=== PATIENT | male | born 1985 | race Caucasian/White ===

== ENCOUNTER 2018-07-22 19:20 | Emergency (ER) | payer BC, SELFPAY ==
[2018-07-22 19:21] VITALS: BP 144/80; PULSE 112; RESP 20; TEMP 37.1; O2SAT 95; BMI 39.8
--- NOTE | 2018-07-22 19:49 | CT_ITS ---
STUDY: CT LEFT FEMUR WITH AND WITHOUT CONTRAST REASON FOR EXAM: Male, 32 years old. Trauma to left posterior thigh RADIATION DOSAGE (If Supplied By Facility): CTDIvol = ( 48.46 ) mGy, DLP = ( 1380.25 ) mGycm TECHNIQUE: Transaxial CT imaging of the femur was performed pre and post contrast administration. The examination was performed with intravenous administration of 100ML ml of Isovue 370 contrast material. Sagittal and coronal images were reconstructed. Individualized dose optimization techniques were used for this CT. COMPARISON: None. FINDINGS: Normal visualized femur. There is air seen within the subcutaneous fat of the left posterior medial thigh and within the medial muscular compartment.. There is no hematoma identified or contrast extravasation to suggest active bleeding at this time There is no enhancing abnormality. CT/CTA LWR EXTR W/O & W/DYE IMPRESSION: Subcutaneous and medial compartmental air status post traumatic puncture injury without evidence for appreciable hematoma or acute hemorrhage at this time No evidence for fracture Electronically Signed: Peter Russell MD at 20:30 EDT , Service support ,
[2018-07-22] MEDS: Ondansetron 4 MG/2 ML Vial IV (19:55)
[2018-07-22] MEDS: Morphine 4 MG/ML Syringe IV (19:56)
[2018-07-22] MEDS: Diphth,Pertuss(Acell),Tet Vac 0.5 ML Vial IM (20:15)
[2018-07-22] MEDS: 0.9% Normal Saline 1,000 ML 150 ML IV (20:15)
[2018-07-22 20:39] LABS: Absolute Lymphocyte Count 2.27 X10^3/ul (0.83-4.51); Absolute Neutrophil Count 8.7 X10^3/uL (2.0-7.7); Basophil# 0.05 X10^3/uL; Basophil% 0.4 % (0-1); Eosinophil# 0.33 X10^3/uL; Eosinophils% 2.6 % (0-5); Hematocrit 46.2 % (40-54); Hemoglobin 15.6 g/dl (13.0-16.5); Lymphocyte # 2.27 X10^3/ul (4.0); Lymphocyte % 18.1 % (19-41); Mean Corp Hgb Conc 33.8 g/gl (32-36); Mean Corpuscular Hgb 27.6 pg (27.0-32.0); Mean Corpuscular Volume 81.6 fL (80-94); Mean Platelet Vol. 10.3 fl (6.2-12.0); Monocyte# 1.12 X10^3/uL; Monocyte% 8.9 % (0-10); Neutrophil # 8.72 X10^3/uL (2.7-7.7); Neutrophil % 69.6 % (47-70); POSITIVE COUNT NO; POSITIVE DIFFERENTIAL NO; POSITIVE MORPHOLOGY NO; Platelet Count 212 K/mm3 (150-450); RBC Distribution Width CV 13.8 % (11.6-14.6); Red Blood Count 5.66 M/mm3 (4.6-6.2); White Blood Count 12.5 K/mm3 (4.4-11.0)
[2018-07-22 20:47] LABS: Anion Gap 9 (5-15); BUN 20 mg/dL (7-18); BUN/Creat Ratio 18.2 RATIO (10-20); Calcium,Total 8.5 mg/dL (8.5-10.1); Chloride 109 mmol/L (98-107); EST Glomerular Filtration Rate 83 mL/min (>60); Est Glom Filt Rate - Afr Amer 101 mL/min (>60); Estimated Creatinine Clearance 114.17 ml/min; Glucose 90 mg/dL (74-106); Potassium 3.7 mmol/L (3.5-5.1); Sodium Level 141 mmol/L (136-145)
--- NOTE | 2018-07-22 22:06 | ED.VISSUMM ---
- ER Visit Summary Date of Service: 07/22/18 Chief Complaint: Puncture wound left thigh History of Present Illness: The patient is a 32 M who states he was standing on a fence trying to drive a 4 x 4 into the ground. He slipped and fell, impaling his left thigh on a slight of a picket fencing. Patient did ambulate into the emergency room. He is unsure of his last tetanus update. He denies any other injury from the fall. Physical Examination: Vital signs remarkable for mild tachycardia. Patient is lying supine in the bed. Left lower extremity examination is significant for a broken wooden fence pick it impaled into the posterior, medial left thigh. He has minimal surrounding bleeding. He has strong distal pulses and good range of motion of his leg. Test Results: CT of the left lower extremity reveals subcutaneous and medial compartmental air status post traumatic puncture without hematoma or acute hemorrhage. CBC was a white count 12.5 with normal differential. Hemoglobin is normal. Chemistry studies unremarkable. Emergency Department Course and Treatment: Tetanus update is provided. Patient is given morphine and Zofran. 10 cc 1% lidocaine is infused locally around the impaled wound. The wooden fence packet was removed from the wound. There is no significant bleeding once foreign body was removed. Wound was explored with no evidence of foreign body. Wound was thoroughly irrigated. Skin was closed with 5 simple interrupted sutures of 4-0 nylon. ABD pad and Garfield wrap was applied to the leg. Patient was observed. On repeat examination there is no active bleeding and no evidence of hematoma formation in the thigh. Patient is treated with Bactrim and Keflex. Treatment Plan: [] Disposition: Discharge Impression: 1. Soft tissue foreign body removal 2. Left thigh wound repair-status post suture This note was generated with [employer] dictation software. It may contain incorrect words, spelling, and punctuation that were not noted in review of the chart prior to signing ED Disposition - Plan for ED Patient: Disposition: Home or Assisted Living Chief Complaint: Foreign Body Instructions: ED Foreign Body Soft Tissue Removed Prescriptions: Cephalexin [Keflex] 500 mg PO Q6 #40 capsule Smz/Tmp Ds [Bactrim Ds] 1 tablet PO BID #14 tablet Referrals: Gokul Hilton III, MD [Primary Care Provider] - 7 Days for suture removal
[2018-07-22] MEDS: Smz/Tmp Ds Tablet 1 TABLET PO (22:14)
[2018-07-22] MEDS: Cephalexin 250 MG Capsule 500 MG PO (22:14)
[2018-07-22 22:19] VITALS: RESP 16
== END 2018-07-22 22:19 | disposition home or self-care (01) ==
PROVIDERS: Emergency Provider Emergency Medicine; Family Provider Family Medicine; PCP Family Medicine
DX: S71.142A Puncture wound with foreign body, left thigh, initial encounter (principal); W01.118A Fall on same level from slipping, tripping and stumbling with subsequent striking against other sharp object, initial encounter; Y93.89 Activity, other specified; Y92.9 Unspecified place or not applicable; Y99.9 Unspecified external cause status; Z23 Encounter for immunization
CPT/HCPCS: 12002; 73706; 80048; 85025; 90715; 96361; 96374; 96375; 99283; J7030; Q9967; A4216; J2405

== ENCOUNTER 2018-08-09 13:54 | Emergency (ER) | payer BC, SELFPAY ==
[2018-08-09 13:55] VITALS: BP 132/90; PULSE 103; RESP 18; TEMP 36.6; O2SAT 99; BMI 41.1
--- NOTE | 2018-08-09 14:30 | CT_ITS ---
STUDY: CT LEFT FEMUR WITHOUT CONTRAST REASON FOR EXAM: Male, 32 years old. NON-HEALING WOUND, EVAL FOR RETAINED FB RADIATION DOSAGE (If Supplied By Facility): CTDIvol = ( 24.29 ) mGy, DLP = ( 1209.29 ) mGycm TECHNIQUE: Transaxial CT imaging of the femur was performed. Sagittal and coronal images were reconstructed. # of Images: 591 Individualized dose optimization techniques were used for this CT. COMPARISON: None. FINDINGS: Normal visualized femur. There is stranding of the subcutaneous fat at the posterior medial aspect of the thigh. There is decrease attenuation in medial aspect of the lower part of the sartorius and gracilis muscles suggesting myositis. No definite fluid collection is seen to suggest an abscess. There is no evidence of foreign body in the soft tissues. Few air bubbles are seen are consistent with an infectious process. CT/Extremity Lower without Contra IMPRESSION: There is stranding of the subcutaneous fat at the posterior medial aspect of the thigh. There is decrease attenuation in medial aspect of the lower part of the sartorius and gracilis muscles suggesting myositis. Electronically Signed: Jinny Cherry MD at 15:25 EDT Tel , Service support ,
[2018-08-09 14:43] LABS: Absolute Neutrophil Count 8.2 X10^3/uL (2.0-7.7); Basophil# 0.06 X10^3/uL; Basophil% 0.5 % (0-1); Eosinophil# 0.52 X10^3/uL; Eosinophils% 4.1 % (0-5); Hematocrit 47.7 % (40-54); Hemoglobin 15.9 g/dl (13.0-16.5); Lymphocyte % 22.3 % (19-41); Mean Corp Hgb Conc 33.3 g/gl (32-36); Mean Corpuscular Hgb 27.4 pg (27.0-32.0); Mean Corpuscular Volume 82.1 fL (80-94); Mean Platelet Vol. 10.7 fl (6.2-12.0); Monocyte% 7.9 % (0-10); Neutrophil # 8.16 X10^3/uL (2.7-7.7); Neutrophil % 64.9 % (47-70); POSITIVE COUNT NO; POSITIVE DIFFERENTIAL NO; POSITIVE MORPHOLOGY NO; Platelet Count 236 K/mm3 (150-450); RBC Distribution Width CV 13.8 % (11.6-14.6); RBC Distribution Width SD 41.2 fl (35.1-43.9); Red Blood Count 5.81 M/mm3 (4.6-6.2); White Blood Count 12.6 K/mm3 (4.4-11.0)
[2018-08-09 14:51] LABS: Anion Gap 5 (5-15); BUN 19 mg/dL (7-18); BUN/Creat Ratio 18.1 RATIO (10-20); Calcium,Total 8.8 mg/dL (8.5-10.1); Chloride 107 mmol/L (98-107); Creatinine, Serum 1.05 mg/dL (0.70-1.30); EST Glomerular Filtration Rate 88 mL/min (>60); Est Glom Filt Rate - Afr Amer 106 mL/min (>60); Glucose 86 mg/dL (74-106); Potassium 4.1 mmol/L (3.5-5.1); Sodium Level 139 mmol/L (136-145)
--- NOTE | 2018-08-09 15:23 | ED.VISSUMM ---
- ER Visit Summary Date of Service: 08/09/18 Chief Complaint: Sent to emergency room for evaluation and rule out retained foreign body History of Present Illness: The patient is a 32 M who was seen earlier this month by Dr. Velázquez. He fell onto a post. He had a large piece of wood that entered the proximal medial left thigh. The foreign body was removed after CTA was performed. The physician that saw him is concerned because of firmness and continued drainage. The primary care physician is concern for retained foreign body. Patient denies fever, chills or night sweats. He noted redness anterior left thigh that is lateral and superior to the entry wound. He stated his physician was concerned this was communicated with the injury that occurred beginning of this month. He denies a traumatic fever, murmur, SBE, or being immune suppressed. He states the drainage has been straw-colored or straw-colored and red in color. He has not noted any thick or green appearing drainage. Physical Examination: Vital signs noted and blood pressure is slightly only 132/90 and heart rate is 103. Patient has a healing wound with serous drainage noted and expressed. The area is slightly indurated without erythema, lymphangitis or fluctuance. There is no inguinal lymphadenopathy. Superior and lateral to the wound is an area of cellulitis. There is no fluctuance or lymphangitis. Heart is regular without murmur, gallop or rub. S1 and S2 are normal. Lungs are clear to auscultation with good movement of air bilaterally. Neuro exam is nonfocal Test Results: White count is elevated, 12.6 thousand. There is no shift. Electrolyte panel is unremarkable. CT of the leg was reviewed with the radiologist. There is no retained foreign body. There is cellulitis anterior left thigh that was noted clinically. There is no abscess in this does not communicate with injury wound. Emergency Department Course and Treatment: Patient received first dose of Bactrim and cephalexin for streptococcal and staphylococcal coverage. He meets criteria for outpatient therapy. Treatment Plan: 7-day course of antibiotics and follow-up with his primary care physician Disposition: Discharged to home Impression: 1. Cellulitis anterior left thigh 2. Sepsis 3. Healing wound without evidence infection or retained foreign body This note was generated with [employer] software. It may contain incorrect words, spelling, and punctuation that were not noted in review of the chart prior to signing ED Disposition - Plan for ED Patient: Disposition: Home or Assisted Living Chief Complaint: Wound Check Instructions: ED Burn Wound Check No Infec, ED Infec Skin Cellulitis Prescriptions: Smz/Tmp Ds [Bactrim Ds] 1 tab PO BID #14 tab Cephalexin 500 mg PO 4X/DAY #28 cap Referrals: Collins Murdock MD [Primary Care Provider] - 2 Days for wound check Additional Instructions: Follow-up on Sunday with your doctor for wound check.
--- NOTE | 2018-08-09 15:27 | ED.DCSUM_ITS ---
- ER Visit Summary Date of Service: 08/09/18 Chief Complaint: Sent to emergency room for evaluation and rule out retained foreign body History of Present Illness: The patient is a 32 M who was seen earlier this month by Dr. Velázquez. He fell onto a post. He had a large piece of wood that entered the proximal medial left thigh. The foreign body was removed after CTA was performed. The physician that saw him is concerned because of firmness and continued drainage. The primary care physician is concern for retained foreign body. Patient denies fever, chills or night sweats. He noted redness anterior left thigh that is lateral and superior to the entry wound. He stated his physician was concerned this was communicated with the injury that occurred beginning of this month. He denies a traumatic fever, murmur, SBE, or being immune suppressed. He states the drainage has been straw-colored or straw- colored and red in color. He has not noted any thick or green appearing drainage. Physical Examination: Vital signs noted and blood pressure is slightly only 132/90 and heart rate is 103. Patient has a healing wound with serous drainage noted and expressed. The area is slightly indurated without erythema, lymphangitis or fluctuance. There is no inguinal lymphadenopathy. Superior and lateral to the wound is an area of cellulitis. There is no fluctuance or lymphangitis. Heart is regular without murmur, gallop or rub. S1 and S2 are normal. Lungs are clear to auscultation with good movement of air bilaterally. Neuro exam is nonfocal Test Results: White count is elevated, 12.6 thousand. There is no shift. Electrolyte panel is unremarkable. CT of the leg was reviewed with the radiologist. There is no retained foreign body. There is cellulitis anterior left thigh that was noted clinically. There is no abscess in this does not comm unicate with injury wound. Emergency Department Course and Treatment: Patient received first dose of Bactrim and cephalexin for streptococcal and staphylococcal coverage. He meets criteria for outpatient therapy. Treatment Plan: 7-day course of antibiotics and follow-up with his primary care physician Disposition: Discharged to home Impression: 1. Cellulitis anterior left thigh 2. Sepsis 3. Healing wound without evidence infection or retained foreign body This note was generated with [employer] software. It may contain incorrect words, spelling, and punctuation that were not noted in review of the chart prior to signing ED Disposition - Plan for ED Patient: Disposition: Home or Assisted Living Chief Complaint: Wound Check Instructions: ED Burn Wound Check No Infec, ED Infec Skin Cellulitis Prescriptions: Smz/Tmp Ds [Bactrim Ds] 1 tab PO BID #14 tab Cephalexin 500 mg PO 4X/DAY #28 cap Referrals: Collins Murdock MD [Primary Care Provider] - 2 Days for wound check Additional Instructions: Follow-up on Sunday with your doctor for wound check.
[2018-08-09 15:52] VITALS: BP 120/72; PULSE 72; RESP 16; O2SAT 100
--- NOTE | 2018-08-09 15:53 | NURSING ---
Keflex given. Bactrim not given as patient took dose at home. Unable to chart due to computer error.
== END 2018-08-09 15:54 | disposition home or self-care (01) ==
PROVIDERS: Emergency Provider Emergency Medicine; Family Provider Family Medicine; PCP Family Medicine
DX: L03.116 Cellulitis of left lower limb (principal); A41.9 Sepsis, unspecified organism; S71.102D Unspecified open wound, left thigh, subsequent encounter; W26.8XXD Contact with other sharp object(s), not elsewhere classified, subsequent encounter; I10 Essential (primary) hypertension
CPT/HCPCS: 73700; 80048; 85025; 87070; 87075; 87186; 87205; 99284; A4216

== ENCOUNTER 2021-02-23 10:21 | Outpatient (RCR) | payer BC, SELFPAY | END 2021-03-30 23:59 | LOC: IMMUN 10:21 | PROVIDERS: PCP Family Medicine; Referring Provider Family Medicine; Visit Provider Family Medicine | DX: Z23 Encounter for immunization (principal) | CPT/HCPCS: 0001A; 91300 ==